=== PATIENT | female | born 1990 | race Caucasian/White ===

== ENCOUNTER 2020-01-02 17:35 | Inpatient (IN) ==
[2020-01-08] MEDS ORDERED: PHENOBARBITAL IV PRN ×2 (17:59→18:26)
[2020-01-08] MEDS ORDERED: D5W 1,000 ML IV PRN ×2 (17:59→18:26)
[2020-01-08] MEDS ORDERED: NICOTINE GUM BUCCAL PRN (17:59)
[2020-01-08] MEDS ORDERED: DESYREL PO PRN ×2 (17:59→18:26)
[2020-01-08] MEDS ORDERED: MOTRIN PO PRN ×2 (17:59→18:26)
[2020-01-08] MEDS ORDERED: ZOFRAN IM PRN (17:59)
[2020-01-08] MEDS ORDERED: TUBERSOL ID ONE ×2 (17:59→18:26)
[2020-01-08] MEDS ORDERED: MAALOX PLUS LIQUID PO PRN ×2 (17:59→18:26)
[2020-01-08] MEDS ORDERED: NICODERM PATCH TD PRN ×2 (17:59→18:26)
[2020-01-08] MEDS ORDERED: ZOFRAN ODT PO PRN ×2 (17:59→18:26)
[2020-01-08] MEDS ORDERED: DULCOLAX PR PRN ×2 (17:59→18:26)
[2020-01-08] MEDS ORDERED: IMODIUM PO PRN ×3 (17:59→18:26)
[2020-01-08] MEDS ORDERED: TYLENOL PO PRN ×2 (17:59→18:26)
[2020-01-08] MEDS ORDERED: SEROQUEL PO PRN ×2 (17:59→18:26)
[2020-01-08] MEDS ORDERED: ZOFRAN IV PRN ×2 (17:59→18:26)
[2020-01-08] MEDS ORDERED: SENOKOT PO PRN ×2 (17:59→18:26)
[2020-01-08 18:19] LABS: URINE SOURCE VOIDED
[2020-01-08 18:22] LABS: BILIRUBIN URINE NEGATIVE (NEGATIVE); BLOOD URINE TRACE (NEGATIVE); COLOR YELLOW; GLUCOSE URINE NEGATIVE (NEGATIVE); KETONE URINE NEGATIVE (NEGATIVE); LEUKOCYTES URINE NEGATIVE (NEGATIVE); NITRITE URINE NEGATIVE (NEGATIVE); PH URINE 7.5; PROTEIN URINE NEGATIVE (NEGATIVE); SP GRAVITY URINE 1.013; TURBIDITY URINE CLEAR (CLEAR); UROBILINOGEN URINE NORMAL (NORMAL)
[2020-01-08 18:23] LABS: UR EPITHELIAL CELLS <10 /HPF (<10); URINE BACTERIA NEGATIVE /HPF; URINE RBC <10 /HPF (<10); URINE WBC <10 /HPF (<10)
[2020-01-08] MEDS ORDERED: BENTYL PO PRN (18:26)
[2020-01-08] MEDS ORDERED: LIBRIUM PO SCH (18:26)
[2020-01-08] MEDS ORDERED: FOLIC ACID PO SCH (18:26)
[2020-01-08] MEDS ORDERED: ROBAXIN PO PRN (18:26)
[2020-01-08] MEDS ORDERED: ATARAX PO PRN (18:26)
[2020-01-08] MEDS ORDERED: SALINE LOCK IV FLUID XX ONE (18:26)
[2020-01-08 18:34] LABS: UR AMPHETAMINES QUAL PRESUMPTIVE POSITIVE (NONE DETECT); UR BARBITUATES QUAL NONE DETECTED (NONE DETECT); UR BENZODIAZEPIN QUAL PRESUMPTIVE POSITIVE (NONE DETECT); UR CANNABINOIDS QUAL PRESUMPTIVE POSITIVE (NONE DETECT); UR COCAINE QUAL PRESUMPTIVE POSITIVE (NONE DETECT)
[2020-01-08 18:35] LABS: UR METHADONE QUAL NONE DETECTED (NONE DETECT); UR METHAMPHETAMINE QUAL NONE DETECTED (NONE DETECT); UR OPIATES QUAL NONE DETECTED (NONE DETECT); UR OXYCODONE QUAL NONE DETECTED (NONE DETECT); UR PCP QUAL NONE DETECTED (NONE DETECT); UR PROPOXYPHENE QUAL NONE DETECTED (NONE DETECT); UR TCA QUAL NONE DETECTED (NONE DETECT)
[2020-01-08 18:58] LABS: HEMATOCRIT 37.2 % (37.0-47.0); HEMOGLOBIN 12.8 g/dL (12.0-16.0); MCH 30.8 PG (27-31); MCHC 34.4 g/dL (33-37); MCV 89.4 FL (81-99); MPV 9.1 FL (7.4-10.4); RBC 4.16 XMIL (4.2-5.4); RDW 11.2 % (11.5-14.5); WBC 7.58 X1000 (4.8-10.8)
[2020-01-08 19:04] LABS: AGAP 14; ALBUMIN 4.5 g/dL (3.5-5.0); ALKALINE PHOSPHATASE 61 U/L (32-104); AMYLASE 63 U/L (20-200); BUN 8 mg/dL (8-22); CALCIUM 9.3 mg/dL (8.8-10.2); CHLORIDE 100 mmol/L (98-107); COSMO 278; CREATININE 0.4 mg/dL (0.5-0.9); ESTIMATED GFR > 60; GLUCOSE 97 mg/dL (70-104); GOT 16 U/L (10-30); GPT 10 U/L (10-36); LIPASE 22 U/L (13-60); POTASSIUM 3.8 mmol/L (3.5-5.1); SODIUM 140 mmol/L (136-145); TCO2 27 mmol/L (25-35); TOTAL PROTEIN 7.8 g/dL (6.3-8.3)
[2020-01-08 19:06] LABS: INR 0.95; PROTIME 13.1 Seconds (11.0-16.0)
[2020-01-08] MEDS: PROTONIX PO SCH (19:38)
[2020-01-08] MEDS: LIBRIUM PO SCH (19:38)
[2020-01-08] MEDS: VITAMIN B-1 PO SCH (19:38)
[2020-01-08] MEDS: THERA M PLUS PO SCH (19:38)
[2020-01-08] MEDS: SUBUTEX SL SCH (20:33)
[2020-01-09] MEDS: LIBRIUM PO SCH ×2 (00:04→06:22)
--- NOTE | 2020-01-09 04:03 | HISTORY AND PHYSICAL ---
CHIEF COMPLAINT: Nausea and vomiting. HISTORY OF PRESENT ILLNESS: The patient is a 29-year-old female who presented [facility] secondary to nausea, vomiting, myalgias and paresthesias. She states that she has been using and abusing opiates as well as other substances. She has been trying to stop but has not been successful. SOCIAL HISTORY: Patient is , currently unemployed [*]. PAST MEDICAL HISTORY: Significant for chronic anxiety and depression. CURRENT MEDICATIONS: Xanax 0.5 mg t.i.d., Adderall 20 mg, Subutex 8 t.i.d., Zanaflex 4, hydroxyzine. ALLERGIES: Naloxone and [*] REVIEW OF SYSTEMS: CINA score is elevated due to frequent falling, [*]watery eyes. Has some abdominal pain and some nausea. Denies any fevers or chills. Denies headaches, blurry vision, change in vision. Denies any focalized numbness or weakness. Does note in November she was admitted to [facility]. She reports she is not suicidal. [*]. SUBSTANCE ABUSE HISTORY: Patient was committed in 2012 at [facility] in [place], [place]. In 2011 to 2012 she was at [facility] in [place], [place] for 1 month, then went to [*] She has been in the [facility] inpatient for hallucinations 5 months ago and again 1 month ago. She is currently from her secondary to her substance abuse. She started drinking at 14, last drank approximately a week ago only socially. Started marijuana at 15. Last use was January 07. States she uses it infrequently. Did use a lot more when she was younger. She started Xanax at 16. Currently states that she takes 2 mg a day, but uses only as prescribed. Started Adderall at 26. Has abused in the past. Currently only uses it as prescribed. [*]notes she began using hallucinogens at 16 and has abused them here. She [*]for a couple of years. Started inhalants at 18. Has not used in a month. Only use recreationally. Started opiates at 16, currently is using Subutex. Previously she was abusing oxycodone 80 mg up to 3 times daily. Started nicotine in her 20s. Currently smokes a pack a day until March. She currently is currently vaping very frequently. FAMILY HISTORY: Noncontributory. PHYSICAL EXAMINATION: VITAL SIGNS: Reviewed and stable. Patient is awake, alert. Currently she is in no respiratory distress. HEENT: Normocephalic. NECK: Supple. CARDIOVASCULAR: Regular rate. CHEST: Clear. ABDOMEN: Soft. EXTREMITIES: Moves all extremities. NEUROLOGIC: No focal neurological changes. SKIN: Warm dry. No rashes. ASSESSMENT: 1. Nausea and vomiting with abdominal pain. 2. Myalgias. 3. Paresthesias. 4. Paroxysmal sweating. 5. Opiate abuse withdrawal and stabilization. 6. Polysubstance use and abuse. 7. Chronic tobacco abuse. 8. Chronic anxiety, depression. PLAN: We will continue patient in the hospital and continue to follow. We will place on Librium as well as Subutex, and will taper off both with intent of going to further inpatient treatment upon stabilization. cc: Marin Hayes MD
[2020-01-09] MEDS: PROTONIX PO SCH (06:22)
[2020-01-09] MEDS ORDERED: PROTONIX PO SCH (07:00)
[2020-01-09 08:18] VITALS: BP 124/72
[2020-01-09] MEDS ORDERED: THERA M PLUS PO SCH (09:00)
[2020-01-09] MEDS ORDERED: VITAMIN B-1 PO SCH (09:00)
[2020-01-09] MEDS ORDERED: M.V.I.-12 10 ML, FOLIC ACID 1 MG, MAGNESIUM SULFATE 1 GM, THIAMINE 100 MG in NS 1,000 ML IV ONE (09:00)
[2020-01-09] MEDS ORDERED: FOLIC ACID PO SCH (09:00)
[2020-01-09] MEDS: VITAMIN B-1 PO SCH (09:12)
[2020-01-09] MEDS: THERA M PLUS PO SCH (09:12)
[2020-01-09] MEDS: SUBUTEX SL SCH (09:12)
--- NOTE | 2020-01-10 08:56 | DISCHARGE SUMMARY ---
ADMISSION DATE: 01/08/2020 DISCHARGE DATE: 01/09/2020 DISCHARGE DIAGNOSES: 1. Paranoia. 2. Nausea and vomiting. 3. Abdominal pain. 4. Myalgias. 5. Paresthesias. 6. Paroxysmal sweating. 7. Polysubstance use and abuse. CONSULTATIONS: None. PROCEDURES: None. BRIEF HOSPITAL COURSE: Patient is a 29-year-old female who presented to the hospital with increased nausea, vomiting, abdominal pain, myalgias, paresthesias. She was placed on Librium, as well as a Suboxone taper. Unfortunately, she refused to stay in the hospital. She became paranoid. States that her is missing, although he has simply blocked her calls. She states she has attempted to get the FBI involved. DISPOSITION: Patient will be discharged home. She did leave [facility], and therefore, we were unable to assist with any treatment [*] medications or counseling. cc: Marin Hayes MD
== END 2020-01-09 12:14 | disposition left against medical advice (07) | DRG 894 ==
LOC: P.DIRADM 17:37 → P.MEDSURG 01-08 17:28
PROVIDERS: ADMIT Family Medicine; ATTEND Family Medicine